=== PATIENT | male | born 1995 | race Caucasian/White ===

== ENCOUNTER 2016-09-22 06:48 | Emergency (ER) | payer OTHER ==
--- NOTE | 2016-09-22 08:03 | C.PDOC ---
History Of Present Illness 21-year-old male, presents to the emergency department with complaints of right toe pain. Patient states he has bee experiencing non-traumatic redness and swelling to the right great toe since last night. Denies numbness/weakness, fever, chills, or any other associated symptoms. No other complaints at this time. Time Seen by Provider: 09/22/16 07:16 Chief Complaint (Nursing): Lower Extremity Problem/Injury History Per: Patient History/Exam Limitations: no limitations Onset/Duration Of Symptoms: Hrs Current Symptoms Are (Timing): Still Present Severity: Moderate Past Medical History Reviewed: Historical Data, Nursing Documentation, Vital Signs Vital Signs: Last Vital Signs Temp 98.3 F 09/22/16 09:15 Pulse 60 09/22/16 09:15 Resp 16 09/22/16 09:15 BP 131/84 09/22/16 09:15 Pulse Ox 96 09/22/16 11:50 Family History: States: Unknown Family Hx - Social History Hx Tobacco Use: No Hx Alcohol Use: No Hx Substance Use: Yes - Immunization History Hx Tetanus Toxoid Vaccination: No Hx Influenza Vaccination: No Hx Pneumococcal Vaccination: No Review Of Systems Except As Marked, All Systems Reviewed And Found Negative. Constitutional: Negative for: Fever, Chills Respiratory: Negative for: Shortness of Breath Gastrointestinal: Negative for: Vomiting Musculoskeletal: Positive for: Foot Pain Neurological: Negative for: Weakness, Numbness Physical Exam - Physical Exam Appears: Non-toxic, No Acute Distress Skin: Warm, Dry, No Rash Eye(s): bilateral: Normal Inspection, PERRL Nose: Normal Oral Mucosa: Moist Lips: Normal Appearing Neck: Normal ROM Respiratory: No Accessory Muscle Use Extremity: Tenderness, Swelling, Other (Tenderness and mild erythema to first digit of right foot.) Neurological/Psych: Oriented x3 ED Course And Treatment O2 Sat by Pulse Oximetry: 96 (on RA) Pulse Ox Interpretation: Normal - Other Rad Right foot X-Ray: Interpreted by Me Interpretation: No fracture or dislocation Medical Decision Making Medical Decision Making: Differential/DX: cellulitis, fracture/dislocation, gout. The xray is negative for fracture/dislocation or foreign body. There is no signs of wound or insect bite to cause cellulitis. physical exam is indicative of gout. Disposition - Disposition Referrals: [facility] [Outside] Disposition: HOME/ ROUTINE Disposition Time: 08:26 Condition: GOOD Additional Instructions: Follow up with the medical doctor within 1-2 days. return if worsened. 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 - Scribe Statement The provider has reviewed the documentation as recorded by the Scribe (Cyndi Mak) All medical record entries made by the Scribe were at my direction and personally dictated by me. I have reviewed the chart and agree that the record accurately reflects my personal performance of the history, physical exam, medical decision making, and the department course for this patient. I have also personally directed, reviewed, and agree with the discharge instructions and disposition.
--- NOTE | 2016-09-22 11:25 | RAD ---
PROCEDURE: Radiographs of the right great toe. TECHNIQUE:: AP radiograph of the right foot, with oblique and lateral view of the right great toe. COMPARISON: None. FINDINGS: BONES: No evidence of acute fracture. Mild hallux valgus deformity is noted. JOINTS: Normal. SOFT TISSUES: Normal. OTHER FINDINGS: None. IMPRESSION: No evidence of acute fracture.
[2016-09-22 12:38] VITALS: BP 131/84; PULSE 60; RESP 16; TEMP 98.3; O2SAT 96
== END 2016-09-22 09:15 | disposition home or self-care (01) ==
LOC: C.ER 06:48
DX: M10.9 Gout, unspecified (principal)

== ENCOUNTER 2016-12-03 17:49 | Emergency (ER) | payer OTHER ==
[2016-12-03 18:07] VITALS: BP 117/70; PULSE 60; TEMP 98; O2SAT 97
--- NOTE | 2016-12-03 19:38 | C.PDOC ---
History Of Present Illness 21 year old male presents to the ED for evaluation of midsternal chest pain and lightheadedness which began this afternoon while he was working at the [employer]. Patient notes his pain worsens when taking deep breaths and radiates towards his back. Patient notes he's had a cough since December 2015 and has undergone many CXRs, which have been unremarkable. Patient's brother has been experiencing similar coughing symptoms and has been told that his symptoms are related to second-hand smoke exposure. Patient denies history of smoking, but states he lives with people who smoke. Patient reports history of gout and states he recently had an allergic reaction to indomethacin. Patient is currently taking prednisone as prescribed. Patient notes symptoms have improved. Otherwise, patient denies fever, chills, abdominal pain, recent trauma /injuries or recent travel. Time Seen by Provider: 12/03/16 19:25 Chief Complaint (Nursing): Chest Pain History Per: Patient History/Exam Limitations: no limitations Onset/Duration Of Symptoms: Hrs Current Symptoms Are (Timing): Better Quality: "Pain" Exacerbating Factors: Deep Breathing Recent travel outside of the [place]: No Additional History Per: Patient Past Medical History Reviewed: Historical Data, Nursing Documentation, Vital Signs Vital Signs: Last Vital Signs Temp 98 F 12/03/16 18:04 Pulse 60 12/03/16 18:04 Resp 18 12/03/16 18:04 BP 117/70 12/03/16 18:04 Pulse Ox 97 12/03/16 21:03 - Medical History PMH: Asthma Surgical History: No Surg Hx Family History: States: Unknown Family Hx - Social History Hx Tobacco Use: No Hx Alcohol Use: No Hx Substance Use: No - Immunization History Hx Tetanus Toxoid Vaccination: No Hx Influenza Vaccination: No Hx Pneumococcal Vaccination: No Review Of Systems Constitutional: Negative for: Fever, Chills Cardiovascular: Positive for: Chest Pain (mid-sternal ) Gastrointestinal: Negative for: Abdominal Pain Physical Exam - Physical Exam Appears: Non-toxic, No Acute Distress Skin: Normal Color, Warm, Dry Head: Atraumatic, Normacephalic Eye(s): bilateral: Normal Inspection Oral Mucosa: Moist Neck: Supple Chest: Symmetrical, No Deformity, No Tenderness Cardiovascular: Rhythm Regular, No Murmur Respiratory: Normal Breath Sounds, No Rales, No Rhonchi, No Wheezing Back: Normal Inspection, No Vertebral Tenderness, No Paraspinal Tenderness Extremity: Normal ROM, Capillary Refill (less than 2 seconds ) Neurological/Psych: Oriented x3, Normal Speech, Normal Cognition Gait: Steady ED Course And Treatment ECG: Interpreted By Me ECG Rhythm: Sinus Rhythm ECG Interpretation: Normal Rate From EC (bpm) O2 Sat by Pulse Oximetry: 97 (on RA) Pulse Ox Interpretation: Normal - Radiology CXR: Interpreted by Me CXR Interpretation: Yes: No Acute Disease. No: Infiltrates, Cardiomegaly, Pnemothorax Progress Note: CXR ordered and reviewed. Tylenol PO administered. Medical Decision Making Medical Decision Making: On second re-exam, the patient reports improvement of symptoms. Lungs are CTA, heart is RRR, abdomen is soft, non-tender and tolerating PO well. Follow up with the medical doctor/clinic within 1-2 days. return if worsened. Disposition - Disposition Referrals: Saurav Schaffer, DNP, DOOR TO [employer] FUNDRAISING COLLECTOR [Advanced Practice Nurse] - Disposition: HOME/ ROUTINE Disposition Time: 21:33 Condition: GOOD Additional Instructions: Follow up with the medical doctor/clinic within 1-2 days. return if worsened. 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 - Scribe Statement The provider has reviewed the documentation as recorded by the Scribe (Na Piper) All medical record entries made by the Scribe were at my direction and personally dictated by me. I have reviewed the chart and agree that the record accurately reflects my personal performance of the history, physical exam, medical decision making, and the department course for this patient. I have also personally directed, reviewed, and agree with the discharge instructions and disposition.
[2016-12-03 21:50] VITALS: RESP 20
--- NOTE | 2016-12-04 08:36 | RAD ---
HISTORY: chest pain COMPARISON: No prior. TECHNIQUE: Chest PA and lateral FINDINGS: LUNGS: No active pulmonary disease. PLEURA: No significant pleural effusion identified. No pneumothorax apparent. CARDIOVASCULAR: Normal. OSSEOUS STRUCTURES: No significant abnormalities. VISUALIZED UPPER ABDOMEN: Normal. OTHER FINDINGS: None. IMPRESSION: No active disease.
== END 2016-12-03 21:49 | disposition home or self-care (01) ==
LOC: C.ER 17:49
DX: M94.0 Chondrocostal junction syndrome [Tietze] (principal)